=== PATIENT | female | born 1965 | race African-American/Black ===

== ENCOUNTER 2024-10-17 17:06 | Emergency (ER) | payer MEDICAID ==
[~2024-10-17] VITALS: Ht 167.6 cm; Wt 70.0 kg
[2024-10-17 17:16] VITALS: O2SAT 99
[2024-10-17] MEDS: SODIUM CHLORIDE 0.9% (SEPSIS BOLUS) IV ONE (17:43)
[2024-10-17] MEDS: PIPERACILLIN/TAZO 3.375G/50ML 50 ML IV ONE (17:43)
[2024-10-17 17:54] LABS: BASOPHILS % 0.4 % (0.0-2.0); DIFFERENTIAL COMMENT 0; HEMATOCRIT. 43.7 % (36.0-48.0); HEMOGLOBIN. 13.2 g/dL (12.0-16.0); LYMPHOCYTES % 8.5 % (20.0-50.0); MEAN CORPUSCULAR HEMOGLOBIN 22.9 pg (28.0-32.0); MEAN CORPUSCULAR HGB CONC 30.2 g/dL (31.0-37.0); MEAN CORPUSCULAR VOLUME 75.9 fL (81.0-99.0); MEAN PLATELET VOLUME 12.4 fl (7.4-10.4); MONOCYTES % 9.4 % (2.0-8.0); NEUTROPHILS % 81.7 % (40.0-76.0); PLATELET 178 x1000/uL (130-400); RED BLOOD CELL COUNT 5.75 mill/uL (4.2-5.4); RED CELL DISTRIBUTION WIDTH 13.7 % (11.6-14.6); WHITE BLOOD COUNT 8.5 x1000/uL (4.5-11.0)
[2024-10-17 18:01] LABS: CHLORIDE 105 mEq/L (98-107); POTASSIUM 3.7 mEq/L (3.5-5.1); SODIUM 140 mEq/L (136-145)
[2024-10-17 18:02] LABS: CARBON DIOXIDE 25 mEq/L (21-32)
[2024-10-17 18:03] LABS: CALCIUM 9.7 mg/dL (8.7-10.4)
[2024-10-17 18:07] LABS: CREATININE 1.3 mg/dL (0.6-1.0); GLUCOSE 133 mg/dL (70-105)
[2024-10-17 18:08] LABS: ETHANOL BLOOD < 10 mg/dL (<10); UREA NITROGEN BLOOD 20 mg/dL (9-23)
[2024-10-17 18:09] LABS: ALANINE AMINOTRANSFERASE 10 IU/L (10-49); ALBUMIN 4.4 g/dL (3.2-4.8); ASPARTATE AMINOTRANSFERASE 13 IU/L (<34)
[2024-10-17 18:10] LABS: BILIRUBIN DIRECT 0.2 mg/dL (<=3.0); BILIRUBIN TOTAL 0.8 mg/dL (0.1-1.0); PROTEIN TOTAL 7.5 g/dL (6.0-8.3)
[2024-10-17 18:12] LABS: TROPONIN I HIGH SENSITIVITY 291 ng/L (3.0-34)
[2024-10-17 18:24] LABS: INR 1.2
[2024-10-17] MEDS: VANCOMYCIN 1G PREMIX 200 ML IV ONE (18:26)
[2024-10-17] MEDS ORDERED: LABETALOL 5MG/ML 4ML INJ IV ONE (19:30)
[2024-10-17] MEDS: LABETALOL 5MG/ML 4ML INJ IV SCH (19:37)
[2024-10-17] MEDS ORDERED: LORAZEPAM 2MG/ML INJ IV ONE (20:00)
[2024-10-17] MEDS: LORAZEPAM 2MG/ML UD SYRINGE IV NR (20:09)
[2024-10-17] MEDS: ACETAMINOPHEN 1000MG/100ML 100 ML IV ONE (21:50)
[2024-10-17 23:30] VITALS: BP 156/85; PULSE 88; RESP 18; TEMP 38.7; O2SAT 100
== END 2024-10-18 | disposition short-term general hospital (02) ==
LOC: ER 17:06 → EDBEDREQ 17:34 → ER 10-18
DX: I21.4 Non-ST elevation (NSTEMI) myocardial infarction (principal); N17.9 Acute kidney failure, unspecified; I65.23 Occlusion and stenosis of bilateral carotid arteries; F19.90 Other psychoactive substance use, unspecified, uncomplicated; R56.9 Unspecified convulsions; Z86.73 Personal history of transient ischemic attack (TIA), and cerebral infarction without residual deficits
CPT/HCPCS: 80076; 80048; 80320; 83880; 83605; 85025; 85610; 86850; 86900; 86901; 87040; 84484; 36415; 84145; 71045; 70496; 70498; 70450; 93005; 96367; 96365; 96375; 99291; 99292; Q9967; J2060; J2543; J3370; J7030; Z7610; 96368; J3490; G0480; J0131